=== PATIENT | female | born 1980 | race Caucasian/White ===

== ENCOUNTER → 2018-09-12 15:23 | Outpatient (CLI) | payer SELFPAY ==
[2013-12-03 12:59] VITALS: BMI 35.9
[2018-09-12 17:52] LABS: Absolute Lymphocyte Count 2.44 X10^3/ul (0.83-4.51); Absolute Neutrophil Count 4.5 X10^3/uL (2.0-7.7); Basophil# 0.06 X10^3/uL; Basophil% 0.7 % (0-1); Eosinophil# 0.22 X10^3/uL; Eosinophils% 2.7 % (0-5); Hematocrit 41.3 % (37-47); Hemoglobin 13.5 g/dl (12.0-15.0); Lymphocyte # 2.44 X10^3/ul (4.0); Lymphocyte % 30.2 % (19-41); Mean Corp Hgb Conc 32.7 g/gl (32-36); Mean Corpuscular Hgb 28.2 pg (27.0-32.0); Mean Corpuscular Volume 86.4 fL (81-99); Mean Platelet Vol. 9.9 fl (6.2-12.0); Monocyte# 0.81 X10^3/uL; Neutrophil # 4.52 X10^3/uL (2.7-7.7); Neutrophil % 56.2 % (47-70); Platelet Count 372 K/mm3 (150-450); RBC Distribution Width CV 12.9 % (11.6-14.6); RBC Distribution Width SD 40.1 fl (35.1-43.9); Red Blood Count 4.78 M/mm3 (4.2-5.4); White Blood Count 8.1 K/mm3 (4.4-11.0)
[2018-09-12 18:06] LABS: POSITIVE COUNT NO; POSITIVE DIFFERENTIAL NO; POSITIVE MORPHOLOGY NO
[2018-09-12 18:54] LABS: ALB/GLOB Ratio 0.9 RATIO (0.9-2.4); AST(SGOT) 17 U/L (15-37); Alanine Aminotransfer ALT/SGPT 22 U/L (13-56); Albumin, Serum 3.6 g/dL (3.2-5.0); Alkaline Phosphatase 76 U/L (45-117); Anion Gap 10 (5-15); BUN 14 mg/dL (7-18); BUN/Creat Ratio 24.6 RATIO (10-20); Calcium,Total 8.6 mg/dL (8.5-10.1); Chloride 104 mmol/L (98-107); Creatinine, Serum 0.57 mg/dL (0.55-1.02); EST Glomerular Filtration Rate 125 mL/min (>60); Est Glom Filt Rate - Afr Amer 151 mL/min (>60); Globulin 3.9 g/dL (2.2-4.2); Glucose 73 mg/dL (74-106); Protein, Total 7.5 g/dL (6.4-8.2); Sodium Level 140 mmol/L (136-145); Thyroid Stim Hormone (TSH) 0.46 uIU/mL (0.358-3.74)
[2018-09-12 19:08] LABS: Vitamin D,25 Hydroxy 12.4 ng/mL (29.95-100.01)
--- OUTSIDE RECORDS SUMMARY | 2018-10-29 21:55 | XMS RPT_ITS ---
:1980 Author Organization OHIP Care Team Providers Name Role Phone Ania Wright Attending Unavailable Ania Wright Referring Unavailable Ania Wright Primary Care Unavailable PROBLEMS PROBLEMS No Problem Records FoundPROCEDURES PROCEDURES No Procedure Records FoundRESULTS RESULTS CBC W/DIFF, AUTOMATED Collected: 09/12/2018 Status: F Source: [place] 3:39 PM [facility] [place] CODE TESTS RESULT OUT OF RANGE REFERENCE UNITS LAB L100.1000 4.4-11.0 K/mm3 Normal WBC 8.1 LAB L100.1200 4.2-5.4 M/mm3 Normal RBC 4.78 LAB L100.1300 12.0-15.0 g/dl Normal HGB 13.5 LAB L100.1400 37-47 % Normal HCT 41.3 LAB L100.1500 81-99 fL Normal MCV 86.4 LAB L100.1600 27.0-32.0 pg Normal MCH 28.2 LAB L100.1700 32-36 g/gl Normal MCHC 32.7 LAB L100.1810 11.6-14.6 % Normal RDW CV 12.9 LAB L100.1820 35.1-43.9 fl Normal RDW SD 40.1 LAB L100.1900 150-450 K/mm3 Normal PLT 372 LAB L100.2000 6.2-12.0 fl Normal MPV 9.9 LAB L100.2100 47-70 % Normal NEUT% 56.2 LAB L100.2200 19-41 % Normal LY% 30.2 LAB L100.2300 0-10 % Normal MONO% 10.0 LAB L100.2400 0-5 % Normal EO% 2.7 LAB L100.2500 0-1 % Normal BASO% 0.7 LAB L100.2550 0.0-0.9 % Normal IM GRAN % 0.200 Result Comment: IG% - Immature Granulocytes (promyelocytes, myelocytes and metamyelocytes) > 1% indicates that a LEFT SHIFT is Present. LAB L100.2620 2.0-7.7 X10 3/uL Normal Absolute Neut 4.5 LAB L100.2720 0.83-4.51 X10 3/ul Normal Absolute Lymph 2.44 Performed By: #### L100.0100 #### [facility] [address] [place], [place], [address] COMPREHENSIVE METABOLIC Collected: 09/12/2018 Status: F Source: [place] [facility] 3:39 PM [facility] [place] CODE TESTS RESULT OUT OF RANGE REFERENCE UNITS LAB L501.0100 74-106 mg/dL Low GLU 73 Result Comment: Please note revised GLUCOSE reference range effective 2017. LAB L501.1000 7-18 mg/dL Normal BUN 14 LAB L501.1100 0.55-1.02 mg/dL Normal CREAT,SERUM 0.57 Result Comment: The validity of the calculated GFR AND GFRAA in patients over 70 years has not been determined. Clinical correlation is essential. LAB L501.1110 >60 mL/min Normal EST GFR 125 Result Comment: Non- GFR Calc LAB L501.1115 >60 mL/min Normal EST GFR - AA 151 Result Comment: GFR Calc LAB L501.1300 10-20 RATIO High BUN/CRE 24.6 LAB L501.1500 6.4-8.2 g/dL T Normal PROT 7.5 LAB L501.1800 3.2-5.0 g/dL Normal ALB 3.6 LAB L501.1950 2.2-4.2 g/dL Normal GLOB 3.9 LAB L501.2000 0.9-2.4 RATIO Normal A/G 0.9 LAB L501.2200 8.5-10.1 mg/dL CA Normal 8.6 LAB L501.4100 15-37 U/L Normal AST 17 LAB L501.4305 45-117 U/L Normal ALK P 76 LAB L501.4405 13-56 U/L Normal ALT 22 LAB L501.4600 0.20-1.00 mg/dL T Normal BILI 0.20 LAB L501.5300 136-145 mmol/L NA Normal 140 LAB L501.5600 3.5-5.1 mmol/L K Normal 4.0 LAB L501.5900 98-107 mmol/L CL Normal 104 LAB L501.6100 21.0-32.0 mmol/L Normal CO2 26.0 LAB L501.6200 5-15 Normal GAP 10 Performed By: #### L500.4050, L501.9520 #### [facility] [address] [place], [place], [address] THYROID STIM HORMONE Collected: 09/12/2018 Status: F Source: [place] ([facility]) 3:39 PM [facility] [place] CODE TESTS RESULT OUT OF RANGE REFERENCE UNITS LAB L501.9520 0.358-3.74 uIU/mL Normal TSH 0.46 Performed By: #### L500.4050, L501.9520 #### [facility] [address] [place], [place], [address] VITAMIN D,25 HYDROXY Collected: 09/12/2018 Status: F Source: [place] 3:39 PM [facility] [place] CODE TESTS RESULT OUT OF REFERENCE UNITS RANGE LAB L506.1000 29.95-100.01 ng/mL Low Vitamin D 12.4 25-OH Result Comment: Vitamin D 25(OH) Status Range Deficiency <20 ng/mL (50nmol/L) Insuffciency 20 - 30 ng/mL (50 - 75 nmol/L) Sufficiency 30 - 100 ng/mL (75 - 250 nmol/L) Toxicity >100 ng/mL (>250 nmol/L) Performed By: #### L506.1000 #### [facility] [address] [place], [place], [address] PROGRESS Observed: 05/10/2018 Status: COMPLETED Source: [place] 7:02 PM [facility] [place] REPOSITORY HNO ID: [id number] Author: Mile Muhammad Service: (none) Author Type: Nurse Practitioner Type: Progress Notes Filed: 05/10/2018 7:27 PM Note Text: Subjective HPI Patient presents with: Sore Throat: X 3 days, T 102.8 max, bilat ear pain AND cough Positive strep 05/08, has taken 4 doses of Amoxil ROS All other reviewed and negative other than HPI. 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 FLUoxetine (PROZAC) 20 mg capsule Take 1 capsule by mouth once daily. ibuprofen (MOTRIN) 800 mg tablet Take 1 tablet by mouth every 8 hours as needed for Pain. FOR PAIN. predniSONE (DELTASONE) 10 mg tablet Take 4 tabs daily x 3 days, then 3 tabs x 3 days, 2 tabs x 3 days, then 1 tab x3 days with food. FAMILY HISTORY Problem Relation Age of Onset - Adopted: Yes - Cancer Mother LUNG - Stroke Maternal Grandmother - Heart Maternal Grandmother - Heart Maternal Grandfather - Hypertension Maternal Grandfather - Cancer Maternal Grandfather Lung Social History Substance Use Topics - Smoking status: Never Smoker - Smokeless tobacco: Never Used - Alcohol use No Objective Physical Exam Constitutional: She is well-developed, well-nourished, and in no distress. HENT: Head: Normocephalic. Right Ear: Tympanic membrane, external ear and ear canal normal. Left Ear: Tympanic membrane, external ear and ear canal normal. Nose: Nose normal. Right sinus exhibits no maxillary sinus tenderness and no frontal sinus tenderness. Left sinus exhibits no maxillary sinus tenderness and no frontal sinus tenderness. Mouth/Throat: Posterior oropharyngeal edema and posterior oropharyngeal erythema present. Eyes: Conjunctivae are normal. Neck: Normal range of motion. Cardiovascular: Normal rate, regular rhythm and normal heart sounds. Pulmonary/Chest: Effort normal and breath sounds normal. No respiratory distress. She has no wheezes. Abdominal: Soft. Lymphadenopathy: Head (right side): Tonsillar adenopathy present. Head (left side): Tonsillar adenopathy present. She has cervical adenopathy. Skin: Skin is warm and dry. No rash noted. Nursing note and vitals reviewed. ASSESSMENT/PLAN: 1. Strep pharyngitis - ICD9: 034.0, ICD10: J02.0 - D/c Amoxil - Start Omnicef - Discussed supportive care treatment with fluids, rest and analgesia. - The patient may also use warm salt water gargles, throat lozenges and/or OTC throat spray as needed. - Contagious dz precautions discussed- including considered contagious until on antibiotics for 24 hours - The patient should follow up in 3-5 days if symptoms persist or worsen - Call back if drooling, increased temperature, symptoms of dehydration and/or still sick in one week Prescription instructions reviewed with patient as applicable. Patient advised if symptoms do not improve or if symptoms worsen sooner, to contact their primary care physician. Potential red flag symptoms discussed with the patient. Reviewed appropriate action plan to take if red flag symptoms occur. Patient agreeable to treatment plan. Mile Muhammad APRN.CNP CNOV Observed: 05/10/2018 Status: COMPLETED Source: [place] 5:30 PM [facility] REPOSITORY Office Visit ([facility]) ULISES SOLOMON ([id number]) 1980 F Date Time Provider Department 05/10/18 5:30 PM MILE MUHAMMAD (CLINICAL PHYSICIAN ASSISTANT) [facility] During your visit today, we recorded the following information about you: Temperature Pulse Respiration Blood pressure 99.4 degrees 80/minute 18/minute 122/84 Weight 73 kg Mile Muhammad APRN.CNP 05/10/2018 7:27 PM Signed Subjective HPI Patient presents with: Sore Throat: X 3 days, T 102.8 max, bilat ear pain AND cough Positive strep 05/08, has taken 4 doses of Amoxil ROS All other reviewed and negative other than HPI. 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 FLUoxetine (PROZAC) 20 mg capsule Take 1 capsule by mouth once daily. ibuprofen (MOTRIN) 800 mg tablet Take 1 tablet by mouth every 8 hours as needed for Pain. FOR PAIN. predniSONE (DELTASONE) 10 mg tablet Take 4 tabs daily x 3 days, then 3 tabs x 3 days, 2 tabs x 3 days, then 1 tab x3 days with food. FAMILY HISTORY Problem Relation Age of Onset - Adopted: Yes - Cancer Mother LUNG - Stroke Maternal Grandmother - Heart Maternal Grandmother - Heart Maternal Grandfather - Hypertension Maternal Grandfather - Cancer Maternal Grandfather Lung Social History Substance Use Topics - Smoking status: Never Smoker - Smokeless tobacco: Never Used - Alcohol use No Objective Physical Exam Constitutional: She is well-developed, well-nourished, and in no distress. HENT: Head: Normocephalic. Right Ear: Tympanic membrane, external ear and ear canal normal. Left Ear: Tympanic membrane, external ear and ear canal normal. Nose: Nose normal. Right sinus exhibits no maxillary sinus tenderness and no frontal sinus tenderness. Left sinus exhibits no maxillary sinus tenderness and no frontal sinus tenderness. Mouth/Throat: Posterior oropharyngeal edema and posterior oropharyngeal erythema present. Eyes: Conjunctivae are normal. Neck: Normal range of motion. Cardiovascular: Normal rate, regular rhythm and normal heart sounds. Pulmonary/Chest: Effort normal and breath sounds normal. No respiratory distress. She has no wheezes. Abdominal: Soft. Lymphadenopathy: Head (right side): Tonsillar adenopathy present. Head (left side): Tonsillar adenopathy present. She has cervical adenopathy. Skin: Skin is warm and dry. No rash noted. Nursing note and vitals reviewed. ASSESSMENT/PLAN: 1. Strep pharyngitis - ICD9: 034.0, ICD10: J02.0 - D/c Amoxil - Start Omnicef - Discussed supportive care treatment with fluids, rest and analgesia. - The patient may also use warm salt water gargles, throat lozenges and/or OTC throat spray as needed. - Contagious dz precautions discussed- including considered contagious until on antibiotics for 24 hours - The patient should follow up in 3-5 days if symptoms persist or worsen - Call back if drooling, increased temperature, symptoms of dehydration and/or still sick in one week Prescription instructions reviewed with patient as applicable. Patient advised if symptoms do not improve or if symptoms worsen sooner, to contact their primary care physician. Potential red flag symptoms discussed with the patient. Reviewed appropriate action plan to take if red flag symptoms occur. Patient agreeable to treatment plan. 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-2014 to GRASS, MOLD, DUST MITE HUBERT'S WORT 06/21/2012 2 - Rash Date Reviewed: 05/10/2018 Reviewed by: Mariposa Samuel LPN - Fully Assessed Reason for Visit: Sore Throat [200] Cmt: X 3 days, T 102.8 max, bilat ear pain AND cough Primary Visit Diagnosis:Strep pharyngitis [J02.0] Order(s):cefdinir (OMNICEF) 300 mg capsuleTake 1 capsule by mouth twice daily for 10 days.Disp: 20 capsuleRfl: 0 Prescriptions as of 05/10/2018 Sig: CEFDINIR 300 MG CAPSULE Take 1 capsule by mouth twice* FLUOXETINE 20 MG CAPSULE Take 1 capsule by mouth once * IBUPROFEN 800 MG TABLET Take 1 tablet by mouth every * PREDNISONE 10 MG TABLET Take 4 tabs daily x 3 days, t* Problem List As Of Date 05/10/2018 Noted Resolved CMV (cytomegalovirus infection) [B25.9] INVALID FOR* Irregular menses [N92.6] INVALID FOR*07/25/2015 Menorrhagia with regular cycle [N92.0] INVALID FOR* Dysmenorrhea [N94.6] INVALID FOR* Prescriptions ordered this encounter Disp Refills Start End CEFDINIR 300 MG CAPSULE 20 c* 0 05/10/2018 05/20/2018 Route: ORAL Sig: Take 1 capsule by mouth twice daily for 10 days. Medications Discontinued During This Encounter amoxicillin (AMOXIL) 875 mg tablet 20 t* 0 05/08/2018 05/10/2018 Route: ORAL Sig: Take 1 tablet by mouth twice daily for 10 days. Disc: Reason for discontinue is not on file. Disposition: Return if symptoms worsen or fail to improve. Follow-up and Disposition History Recorded Letter Text Mile Muhammad APRN.CNP Urgent Care [address] [facility] [address] Dept: [phone] 05/10/2018 Ulises Solomon [address] [facility] [address] To Whom it May Concern: This is to certify that Ulises Solomon was seen at our office for medical care. Ulises may return to work on 05/11/2018. If you have any questions please feel free to call. Sincerely: Mile Muhammad APRN.CNP Encounter Status:Closed by MILE MUHAMMAD on 05/10/18 PROGRESS Observed: 05/08/2018 Status: COMPLETED Source: [place] 2:51 PM [facility] [place] REPOSITORY HNO ID: [id number] Author: Mile Duarte (Slice Plug Cutter Operator) Jb Service: (none) Author Type: Nurse Practitioner Type: Progress Notes Filed: 05/08/2018 2:56 PM Note Text: Subjective HPI Patient presents with: Sore Throat: x 1 day Fever: x 1 day fever and chills Ear Pain: x 1 day right ear pain Aleve otc with minimal relief. ROS All other reviewed and negative other than HPI. PAST MEDICAL HISTORY Diagnosis Date - CMV (cytomegalovirus infection) ([facility]) 05/13/2011 PAST SURGICAL HISTORY Procedure Laterality Date - INCISION EARDRUM,ASPIR,GEN ANESTH Myringotomy/tubes - REMOVAL ADENOIDS,PRIMARY,<12 Y/O Adenoidectomy ALLERGIES [place]; Nut - Unspecified; Seasonal Allergies; [place]'s Wort MEDICATIONS amoxicillin (AMOXIL) 875 mg tablet Take 1 tablet by mouth twice daily for 10 days. FLUoxetine (PROZAC) 20 mg capsule Take 1 capsule by mouth once daily. ibuprofen (MOTRIN) 800 mg tablet Take 1 tablet by mouth every 8 hours as needed for Pain. FOR PAIN. predniSONE (DELTASONE) 10 mg tablet Take 4 tabs daily x 3 days, then 3 tabs x 3 days, 2 tabs x 3 days, then 1 tab x3 days with food. FAMILY HISTORY Problem Relation Age of Onset - Adopted: Yes - Cancer Mother LUNG - Stroke Maternal Grandmother - Heart Maternal Grandmother - Heart Maternal Grandfather - Hypertension Maternal Grandfather - Cancer Maternal Grandfather Lung Social History Substance Use Topics - Smoking status: Never Smoker - Smokeless tobacco: Never Used - Alcohol use No Objective Physical Exam Constitutional: She is well-developed, well-nourished, and in no distress. HENT: Head: Normocephalic. Right Ear: Tympanic membrane, external ear and ear canal normal. Left Ear: Tympanic membrane, external ear and ear canal normal. Nose: Nose normal. Right sinus exhibits no maxillary sinus tenderness and no frontal sinus tenderness. Left sinus exhibits no maxillary sinus tenderness and no frontal sinus tenderness. Mouth/Throat: Posterior oropharyngeal edema and posterior oropharyngeal erythema present. Eyes: Conjunctivae are normal. Neck: Normal range of motion. Cardiovascular: Normal rate, regular rhythm and normal heart sounds. Pulmonary/Chest: Effort normal and breath sounds normal. No respiratory distress. She has no wheezes. Abdominal: Soft. Lymphadenopathy: Head (right side): Tonsillar adenopathy present. Head (left side): Tonsillar adenopathy present. Skin: Skin is warm and dry. No rash noted. Nursing note and vitals reviewed. ASSESSMENT/PLAN: 1. Strep pharyngitis - ICD9: 034.0, ICD10: J02.0 - suspect strep - Rapid Strep positive in the office today - antibiotic as written and Amoxicillin for 10 days. - Discussed supportive care treatment with fluids, rest and analgesia. - Contagious dz precautions discussed- including considered contagious until on antibiotics for 24 hours - The patient should follow up in 3-5 days if symptoms persist or worsen - Call back if drooling, increased temperature, symptoms of dehydration and/or still sick in one week - RAPID STREP TEST B/O Prescription instructions reviewed with patient as applicable. Patient advised if symptoms do not improve or if symptoms worsen sooner, to contact their primary care physician. Potential red flag symptoms discussed with the patient. Reviewed appropriate action plan to take if red flag symptoms occur. Patient agreeable to treatment plan. Mile Muhammad APRN.PHYSICIAN OFFICE REP CNOV Observed: 05/08/2018 Status: COMPLETED Source: [place] 2:15 PM [facility] REPOSITORY Office Visit ([facility]) ULISES SOLOMON ([id number]) 1980 F Date Time Provider Department 05/08/18 2:15 PM MILE MUHAMMAD (LIZETH) [facility] During your visit today, we recorded the following information about you: Temperature Pulse Respiration Blood pressure 99.8 degrees 91/minute 16/minute 112/64 Weight 77.1 kg Mile Muhammad APRN.CNP 05/08/2018 2:44 PM Signed What is strep throat? Strep throat is an infection caused by a specific type of bacteria, Streptococcus. When your child has a strep throat, the tonsils are usually very inflamed, and the inflammation may affect the surrounding part of the throat as well. Symptoms Strep throat is caused by a bacterium called Streptococcus pyogenes. To some extent, the symptoms of strep throat depend on the child?s age. - Infants with strep infections may have only a low fever and a thickened or bloody nasal discharge. - Toddlers (ages one to three) also may have a thickened or bloody nasal discharge with a fever. Such children are usually quite cranky, have no appetite, and often have swollen glands in the neck. Sometimes toddlers will complain of tummy pain instead of a sore throat. - Children over three years of age with strep are often more ill; they may have an extremely painful throat, fever over 102 degrees Fahrenheit (38.9 degrees Celsius), swollen glands in the neck, and pus on the tonsils. It?s important to be able to distinguish a strep throat from a viral sore throat, because strep infections are treated with antibiotics. When to call the languages and literature instructor If your child has a sore throat that persists (not one that goes away after her first drink in the morning), whether or not it is accompanied by fever, headache, stomachache, or extreme fatigue, you should call your languages and literature instructor. That call should be made even more urgently if your child seems extremely ill, or if she has difficulty breathing or extreme trouble swallowing (causing her to drool). This may indicate a more serious infection. Treatment If the strep test shows that your child does have strep throat, your languages and literature instructor will prescribe an antibiotic to be taken by mouth or by injection. If your child is given the oral medication, it?s very important that she take it for the full course, as prescribed, even if the symptoms get better or go away. If a child?s strep throat is not treated with antibiotics, or if she doesn?t complete the treatment, the infection may worsen or spread to other parts of her body, leading to conditions such as abscesses of the tonsils or kidney problems. Untreated strep infections also can lead to rheumatic fever, a disease that affects the heart. However, rheumatic fever is rare in the [place] and in children under five years old. Prevention Most types of throat infections are contagious, being passed primarily through the air on droplets of moisture or on the hands of infected children or adults. For that reason, it makes sense to keep your child away from people who have symptoms of this condition. However, most people are contagious before their first symptoms appear, so often there?s really no practical way to prevent your child from brant the disease. In the past when a child had several sore throats, her tonsils might have been removed in an attempt to prevent further infections. But this operation, called a tonsillectomy, is recommended today only for the most severely affected children. Even in difficult cases, where there is repeated strep throat, antibiotic treatment is usually the best solution. Mile Muhammad APRN.PHYSICIAN OFFICE REP 05/08/2018 2:56 PM Signed Subjective HPI Patient presents with: Sore Throat: x 1 day Fever: x 1 day fever and chills Ear Pain: x 1 day right ear pain Aleve otc with minimal relief. ROS All other reviewed and negative other than HPI. PAST MEDICAL HISTORY Diagnosis Date - CMV (cytomegalovirus infection) ([facility]) 05/13/2011 PAST SURGICAL HISTORY Procedure Laterality Date - INCISION EARDRUM,ASPIR,GEN ANESTH Myringotomy/tubes - REMOVAL ADENOIDS,PRIMARY,<12 Y/O Adenoidectomy ALLERGIES [place]; Nut - Unspecified; Seasonal Allergies; Hubert's Wort MEDICATIONS amoxicillin (AMOXIL) 875 mg tablet Take 1 tablet by mouth twice daily for 10 days. FLUoxetine (PROZAC) 20 mg capsule Take 1 capsule by mouth once daily. ibuprofen (MOTRIN) 800 mg tablet Take 1 tablet by mouth every 8 hours as needed for Pain. FOR PAIN. predniSONE (DELTASONE) 10 mg tablet Take 4 tabs daily x 3 days, then 3 tabs x 3 days, 2 tabs x 3 days, then 1 tab x3 days with food. FAMILY HISTORY Problem Relation Age of Onset - Adopted: Yes - Cancer Mother LUNG - Stroke Maternal Grandmother - Heart Maternal Grandmother - Heart Maternal Grandfather - Hypertension Maternal Grandfather - Cancer Maternal Grandfather Lung Social History Substance Use Topics - Smoking status: Never Smoker - Smokeless tobacco: Never Used - Alcohol use No Objective Physical Exam Constitutional: She is well-developed, well-nourished, and in no distress. HENT: Head: Normocephalic. Right Ear: Tympanic membrane, external ear and ear canal normal. Left Ear: Tympanic membrane, external ear and ear canal normal. Nose: Nose normal. Right sinus exhibits no maxillary sinus tenderness and no frontal sinus tenderness. Left sinus exhibits no maxillary sinus tenderness and no frontal sinus tenderness. Mouth/Throat: Posterior oropharyngeal edema and posterior oropharyngeal erythema present. Eyes: Conjunctivae are normal. Neck: Normal range of motion. Cardiovascular: Normal rate, regular rhythm and normal heart sounds. Pulmonary/Chest: Effort normal and breath sounds normal. No respiratory distress. She has no wheezes. Abdominal: Soft. Lymphadenopathy: Head (right side): Tonsillar adenopathy present. Head (left side): Tonsillar adenopathy present. Skin: Skin is warm and dry. No rash noted. Nursing note and vitals reviewed. ASSESSMENT/PLAN: 1. Strep pharyngitis - ICD9: 034.0, ICD10: J02.0 - suspect strep - Rapid Strep positive in the office today - antibiotic as written and Amoxicillin for 10 days. - Discussed supportive care treatment with fluids, rest and analgesia. - Contagious dz precautions discussed- including considered contagious until on antibiotics for 24 hours - The patient should follow up in 3-5 days if symptoms persist or worsen - Call back if drooling, increased temperature, symptoms of dehydration and/or still sick in one week - RAPID STREP TEST B/O Prescription instructions reviewed with patient as applicable. Patient advised if symptoms do not improve or if symptoms worsen sooner, to contact their primary care physician. Potential red flag symptoms discussed with the patient. Reviewed appropriate action plan to take if red flag symptoms occur. Patient agreeable to treatment plan. 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, MOLD, DUST MITE HUBERT'S WORT 06/21/2012 2 - Rash Date Reviewed: 05/08/2018 Reviewed by: Mile Duarte (Slice Plug Cutter Operator) Jb - Fully Assessed Reason for Visit: Sore Throat [200] Cmt: x 1 day Fever [47] Cmt: x 1 day fever and chills Ear Pain [817] Cmt: x 1 day right ear pain Primary Visit Diagnosis:Strep pharyngitis [J02.0] Order(s):RAPID STREP TEST B/O [[id number]] Order #: [id number] amoxicillin (AMOXIL) 875 mg tabletTake 1 tablet by mouth twice daily for 10 days.Disp: 20 tabletRfl: 0 Prescriptions as of 05/08/2018 Sig: AMOXICILLIN 875 MG TABLET Take 1 tablet by mouth twice * FLUOXETINE 20 MG CAPSULE Take 1 capsule by mouth once * IBUPROFEN 800 MG TABLET Take 1 tablet by mouth every * PREDNISONE 10 MG TABLET Take 4 tabs daily x 3 days, t* Problem List As Of Date 05/08/2018 Noted Resolved CMV (cytomegalovirus infection) [B25.9] INVALID FOR* Irregular menses [N92.6] INVALID FOR*07/25/2015 Menorrhagia with regular cycle [N92.0] INVALID FOR* Dysmenorrhea [N94.6] INVALID FOR* Other instructions from your clinician: What is strep throat? Strep throat is an infection caused by a specific type of bacteria, Streptococcus. When your child has a strep throat, the tonsils are usually very inflamed, and the inflammation may affect the surrounding part of the throat as well. Symptoms Strep throat is caused by a bacterium called Streptococcus pyogenes. To some extent, the symptoms of strep throat depend on the child?s age. - Infants with strep infections may have only a low fever and a thickened or bloody nasal discharge. - Toddlers (ages one to three) also may have a thickened or bloody nasal discharge with a fever. Such children are usually quite cranky, have no appetite, and often have swollen glands in the neck. Sometimes toddlers will complain of tummy pain instead of a sore throat. - Children over three years of age with strep are often more ill; they may have an extremely painful throat, fever over 102 degrees Fahrenheit (38.9 degrees Celsius), swollen glands in the neck, and pus on the tonsils. It?s important to be able to distinguish a strep throat from a viral sore throat, because strep infections are treated with antibiotics. When to call the languages and literature instructor If your child has a sore throat that persists (not one that goes away after her first drink in the morning), whether or not it is accompanied by fever, headache, stomachache, or extreme fatigue, you should call your languages and literature instructor. That call should be made even more urgently if your child seems extremely ill, or if she has difficulty breathing or extreme trouble swallowing (causing her to drool). This may indicate a more serious infection. Treatment If the strep test shows that your child does have strep throat, your languages and literature instructor will prescribe an antibiotic to be taken by mouth or by injection. If your child is given the oral medication, it?s very important that she take it for the full course, as prescribed, even if the symptoms get better or go away. If a child?s strep throat is not treated with antibiotics, or if she doesn?t complete the treatment, the infection may worsen or spread to other parts of her body, leading to conditions such as abscesses of the tonsils or kidney problems. Untreated strep infections also can lead to rheumatic fever, a disease that affects the heart. However, rheumatic fever is rare in the [place] and in children under five years old. Prevention Most types of throat infections are contagious, being passed primarily through the air on droplets of moisture or on the hands of infected children or adults. For that reason, it makes sense to keep your child away from people who have symptoms of this condition. However, most people are contagious before their first symptoms appear, so often there?s really no practical way to prevent your child from brant the disease. In the past when a child had several sore throats, her tonsils might have been removed in an attempt to prevent further infections. But this operation, called a tonsillectomy, is recommended today only for the most severely affected children. Even in difficult cases, where there is repeated strep throat, antibiotic treatment is usually the best solution. Prescriptions ordered this encounter Disp Refills Start End AMOXICILLIN 875 MG TABLET 20 t* 0 05/08/2018 05/18/2018 Route: ORAL Sig: Take 1 tablet by mouth twice daily for 10 days. Disposition: Return if symptoms worsen or fail to improve. Follow-up and Disposition History Recorded Letter Text Mlie Muhammad APRN.PHYSICIAN OFFICE REP Urgent Care [address] [facility] [address] Dept: [phone] 05/08/2018 Ulises Solomon [address] [facility] [address] To Whom it May Concern: This is to certify that Ulises Longpattiejessica was seen at our office for medical care. Ulises may return to work on 05/09/2018. If you have any questions please feel free to call. Sincerely: Mile Muhammad APRN.[facility] Encounter Status:Closed by MILE MUHAMMAD on 05/08/18 ALLERGIES ALLERGIES DATE TYPE / CODE NAME / CODE REACTION SEVERITY SOURCE 04/04/2014 Environ/420 SEASONAL ALLERGIES OTHER: SEE [facility] [id number]([facility] ED CT) Repository 12/03/2013 Drug No Known Unknown Avery Allergy/416 Allergies/[id number] [facility] 865173([place] [address](RXNORM) [facility] ED CT) Repository 06/21/2012 DRUG EDEN RASH [address] [id number]([facility] Repository ED CT) 06/21/2012 DRUG HUBERT'S WORT RASH [address] 511172([facility] Repository ED CT) 07/07/2011 DRUG NUT - UNSPECIFIED OTHER: SEE [address] 975211([facility] Repository ED CT) ENCOUNTERS ENCOUNTERS ADMIT/DISCHARGE ACCOUNT ADMITTING ENCOUNTER LOCATION SOURCE NUMBER CLASS 09/12/2018 [id number] Ambulatory [facility] ing:MTLAB Repository 05/10/2018/05/11/20 [id number] Ambulatory [address] Repository 05/08/2018/05/09/20 [id number] Ambulatory [address] Repository PAYERS PAYERS ENCOUNTER GUARANTOR PAYER SUBSCRIBER SOURCE 09/12/2018 JOCY Primary NOT GIVENSILVIA [id number] Insurance:SELF PAY [place], [place] Number: Effective Repository [id number]: [phone] Date:2018-09-12 [phone] ()
== END ==
PROVIDERS: Family Provider Family Medicine; PCP Family Medicine; Referring Provider Family Medicine; Visit Provider Family Medicine
DX: Z00.00 Encounter for general adult medical examination without abnormal findings (principal); R42 Dizziness and giddiness
CPT/HCPCS: 36415; 80053; 82306; 84443; 85025

== ENCOUNTER → 2018-11-18 13:23 | Outpatient (CLI) | payer SELFPAY ==
[2013-12-03 12:59] VITALS: BMI 35.9
[2018-11-18 14:36] LABS: Vitamin D,25 Hydroxy 13.4 ng/mL (29.95-100.01)
== END ==
PROVIDERS: Family Provider Family Medicine; PCP Family Medicine; Referring Provider Family Medicine; Visit Provider Family Medicine
DX: E55.9 Vitamin D deficiency, unspecified (principal)
CPT/HCPCS: 36415; 82306

== ENCOUNTER → 2018-11-24 13:16 | Outpatient (CLI) | payer OTHER, SELFPAY ==
[2018-11-24 13:12] VITALS: BMI 34.9
--- NOTE | 2018-11-24 13:19 | RAD_ITS ---
STUDY: X-RAY - LEFT KNEE REASON FOR EXAM: Female, 38 years old. Pain following injury. TECHNIQUE: 4 view(s) of the knee. COMPARISON: None. FINDINGS: Normal visualized distal femur. Normal visualized proximal tibia and fibula. Normal proximal tibiofibular articulation. Normal medial femorotibial compartment. Normal lateral femorotibial compartment. Normal patellofemoral articulation. The soft tissue structures are unremarkable. RAD/Knee 4 or More Views IMPRESSION: Normal x-ray examination of the knee. Electronically Signed: Candido Bustos MD at 14:13 EST , Service support ,
== END ==
PROVIDERS: Family Provider Family Medicine; PCP Family Medicine; Referring Provider Physician Assistant; Visit Provider Physician Assistant
DX: S80.02XA Contusion of left knee, initial encounter (principal)
CPT/HCPCS: 73564

== ENCOUNTER → 2019-01-13 14:13 | Outpatient (CLI) | payer SELFPAY ==
[2019-01-10 06:39] VITALS: BMI 34.9
[2019-01-13 15:13] LABS: Vitamin D,25 Hydroxy 22.9 ng/mL (29.95-100.01)
== END ==
PROVIDERS: Family Provider Family Medicine; PCP Family Medicine; Referring Provider Family Medicine; Visit Provider Family Medicine
DX: E55.9 Vitamin D deficiency, unspecified (principal)
CPT/HCPCS: 36415; 82306

== ENCOUNTER → 2020-11-06 12:12 | Outpatient (CLI) | payer OTHER, SELFPAY ==
[2019-01-10 06:39] VITALS: BMI 34.9
[2020-11-06 15:48] LABS: Vitamin D,25 Hydroxy 22.4 ng/mL
== END ==
PROVIDERS: PCP Family Medicine; Referring Provider Podiatrist; Visit Provider Podiatrist
DX: M84.374A Stress fracture, right foot, initial encounter for fracture (principal)
CPT/HCPCS: 36415; 82306

== ENCOUNTER → 2021-01-24 11:06 | Outpatient (CLI) | payer OTHER, SELFPAY ==
[2019-01-10 06:39] VITALS: BMI 34.9
[2021-01-24 13:24] LABS: Vitamin D,25 Hydroxy 27.6 ng/mL
== END ==
PROVIDERS: PCP Family Medicine; Referring Provider Podiatrist; Visit Provider Podiatrist
DX: E55.9 Vitamin D deficiency, unspecified (principal)
CPT/HCPCS: 36415; 82306

== ENCOUNTER → 2022-06-25 | Outpatient (CLI) | payer OTHER, SELFPAY ==
[2022-06-25 15:17] LABS: Anion Gap 4 (5-15); BUN 5 mg/dL (7-18); BUN/Creat Ratio 11.2 RATIO (10-20); Calcium,Total 8.5 mg/dL (8.5-10.1); Chloride 106 mmol/L (98-107); Creatinine, Serum 0.45 mg/dL (0.55-1.02); EST Glomerular Filtration Rate 162 mL/min (>60); Est Glom Filt Rate - Afr Amer 196 mL/min (>60); Glucose 74 mg/dL (74-106); Potassium 3.9 mmol/L (3.5-5.1); Sodium Level 139 mmol/L (136-145)
[2022-06-25 15:42] LABS: Vitamin D,25 Hydroxy 26.5 ng/mL
== END | disposition home or self-care (01) ==
PROVIDERS: Referring Provider Podiatrist; Visit Provider Podiatrist
DX: E55.9 Vitamin D deficiency, unspecified (principal)
CPT/HCPCS: 36415; 80048; 82306

== ENCOUNTER 2022-07-11 14:19 | Emergency (ER) | payer OTHER, SELFPAY ==
[2022-07-11 14:22] VITALS: BP 124/76; PULSE 69; RESP 18; TEMP 36.7; O2SAT 99; BMI 29.2
--- NOTE | 2022-07-11 14:45 | RAD_ITS ---
STUDY: X-RAY - RIGHT FOOT CLINICAL: Female, 42 years old. Injury/Pain TECHNIQUE: 3 view(s) of the foot. COMPARISON: None. FINDINGS: Normal talus, calcaneus, and tarsal bones. Normal visualized subtalar, talonavicular, calcaneocuboid, tarsal and tarsometatarsal articulations. Normal metatarsi. Small plantar calcaneal spur noted. There is mild degenerative arthrosis of the metatarsophalangeal joint of the hallux . Normal tibial and fibular sesamoid bones. Normal interphalangeal joint of the great toe. Normal phalanges of the great toe. Normal second through fifth metatarsophalangeal joints. Normal interphalangeal joints and phalanges of the lesser toes. A corticated ossicle is present at the undersurface of the medial malleolus which is either developmental or due to old trauma. The soft tissue structures are unremarkable. There is no demonstrated fracture. RAD/Foot min 3 Views IMPRESSION: 1. No acute fracture or acute process of the right foot Electronically Signed: Carlos Eduardo Sanderson MD at 15:29 EDT ,
--- NOTE | 2022-07-11 14:45 | ED.VIS.LOWEX ---
HPI History of Present Illness Chief Complaint: Lower Extremity Injury Detail of Chief Complaint: Patient states she felt a pop and had pain mid right foot Informant: patient Occured/Mechanism Comment: Patient states she was standing when this occurred. Onset/Context/Timing Context: Sudden Onset Timing: Continuous Quality of Pain: Dull and Aching Location: Mid right foot Current Severity: Mild Maximum Severity: Moderate Worsened by: Weightbearing and palpation during exam Relieved by: Nothing Associated Symptoms Associated Symptoms: Negative for Parasthesia, Weakness or Loss of Funtion Narrative Narrative: Patient is a 42-year-old woman who presents with atraumatic right foot pain. She states she felt a pop followed by pain. She denies history of osteoporosis. She states she has had multiple fractures in the foot and has seen Dr. Fady licea. She denies paresthesia, anesthesia weakness. 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 Chris Ennis MD) household members: none Smoking Status: Never smoker alcohol intake: never what type of physical activity do you participate in: other ROS ROS ED Constitutional Constitutional ED: Denies chills, fever(s), subjective, sweats or weight loss Musculoskeletal Musculoskeletal: Reports other Details: Documented HPI narrative ; Denies arthralgias, back pain, myalgias or neck pain Integumentary Denies Abrasions or rash Neurologic Neurologic: Reports other Details: And document in HPI ; Denies headache(s), paresthesias or weakness Hematologic/Lymphatic Hematologic/Lymphatic: Denies easy bleeding or easy bruising EXAM Physical Exam Const Vital Signs: 07/11/22 14:22 Temperature 98.1 F Temperature Source Temporal Pulse Rate 69 Respiratory Rate 18 Blood Pressure 124/76 H Blood Pressure Mean 92 Pulse Ox 99 Oxygen Delivery Method Room Air Positive well nourished and well developed General Appearance ED: well developed and NAD HEENT Reports moist mucous membranes normocephalic and atraumatic Eyes PERRL Eyes Narrative: Extract muscle intact. Sclera is anicteric. Neck full ROM Resp normal respiratory effort Cardio regular rate and regular rhythm Extremity Negative for normal to inspection Extremity Narrative: There is soft tissue swelling over the dorsal aspect of the right foot. There is pain no patient over the metatarsal tarsal bones. There is no pain ovation of the base of the fifth metatarsal. There is no pain ovation over the lateral medial malleolus. PT pulse palpable. Difficult to assess DP because of pain. Patient is able to wiggle all of her toes. There is no subungual hematoma noted in any toe. General Extremety ED: Yes weight-bearing difficulty; Negative for cyanosis or edema General Extremity: weight-bearing difficulty; Negative for cyanosis or edema Neuro oriented x3, CN's II-XII intact bilaterally and moves all extremities Sensorium / Orientation: alert Psych mental status grossly normal Skin no wounds Lesions: no lesions Rashes: no rashes MDM MDM MDM Narrative Medical decision making narrative: X-ray of the foot was obtained to evaluate for fracture versus soft tissue injury. Radiography X-Ray: - (Three-view x-ray of the right foot was obtained. There is no soft tissue swelling. There is no fracture. There is no subluxation or dislocation.) Discharge Plan Triage Chief Complaint: Lower Extremity Injury ED Provider: Chris Ennis Dx/Rx/DC Orders Clinical Impression: Acute pain of right foot Instructions: ED Pain, Acute, Uncertain Cause Prescriptions: No Action cholecalciferol (vitamin D3) 1,250 mcg (50,000 unit) capsule 1,250 mcg PO QWEEK Qty: 12 0RF Primary Care Provider: Care Physician,No Primary Referrals: Mathieu Jordan DPM [Med Staff - Active Staff] - 3-5 Days if not improving Care Physician,No Primary [Primary Care Provider] - Activity Restrictions/Additional Instructions: Apply ice 6-8 times a day Take either Advil, 4 tablets every 8 hours or Aleve, 2 tablets every 12 hours for the next 3 to 5 days. Disposition Disposition: Home, Self Care
== END 2022-07-11 15:32 | disposition home or self-care (01) ==
LOC: ED 15:24
PROVIDERS: Emergency Provider Emergency Medicine; Visit Provider Emergency Medicine
DX: M79.671 Pain in right foot (principal)
CPT/HCPCS: 73630; 99284

== ENCOUNTER → 2022-09-25 | Outpatient (CLI) | payer OTHER, SELFPAY ==
--- NOTE | 2022-09-25 11:30 | MRI_ITS ---
STUDY: MR Midfoot W/O Contrast 09/25/2022 7:42 PM right REASON FOR EXAM: Female, 42 years old. stress fracture pain in heel TECHNIQUE: Standardized fat and water weighted pulse sequences were obtained in all 3 orthogonal planes. COMPARISON: xr 10.8.22 FINDINGS: Normal visualized subtalar, talonavicular, calcaneocuboid, tarsal and tarsometatarsal articulations. Normal metatarsi. Normal metatarsophalangeal joint of the great toe. Normal tibial and fibular sesamoid bones. Normal interphalangeal joint of the great toe. Normal phalanges of the great toe. Normal second through fifth metatarsophalangeal joints. Normal interphalangeal joints and phalanges of the lesser toes. The soft tissue structures are unremarkable. MRI/Lower Ext/No Jt/w/o IMPRESSION: No acute findings on this unenhanced MRI of the forefoot. Electronically Signed: Jeffrey Prabhakar MD at 19:44 EST ,
== END | disposition home or self-care (01) ==
PROVIDERS: Referring Provider Podiatrist; Visit Provider Podiatrist
DX: M84.374A Stress fracture, right foot, initial encounter for fracture (principal)
CPT/HCPCS: 73718

== ENCOUNTER 2023-01-07 13:00 | Outpatient (RCR) | payer OTHER, SELFPAY ==
--- NOTE | 2022-12-23 10:54 | HP.PTEVAL_ITS ---
Patient's Visit Information MARK BAZZI is a 42 year old F referred to Physical Therapy by Dr. Mathieu Jordan DPM with a diagnosis of Deep peroneal neuritis. Date of Evaluation: 12/23/22 Physical Therapist: Jh Shannon DPT, OCS, CSCS - Visit Plan Frequency: 3x /Week Duration: 4 Weeks Plan: 3x/week for 4 weeks(recheck after two to consider dry needle/ionto(not covered by insurance)). Please do gastroc soleus rollout, foot STM focussing top of foot and metatarsal mobs, strength and proprioception ankle to HEP, stretch gastroc and soleus. May do US thermal to top r foot and TENS if painful at rest. EG to recheck in two weeks. - Subjective Lots of issues iwth R foot Broke it( not sure why) and put in cast over a year ago adn healed then broke it again and it healed. 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 Hurt more as she was on it. MRI approved adn nothing was broke. Has been off of it from October to 8 weeks later and been off of it alot. Did a day NWB which helped but that is hard for her. Had injection which she did not like and it did help in October. It showed it was her nerve. Pain currently bad as in October and mild to moderate 4/10 many days but after a busy day yesterday is a 6/10 today. It is comfortable at rest and better with elevation. Wrose with shoes on. Goes barefoot alot. 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 Needs a sitting job. Sleep is Ok for the most part. Hobbies include sewing and she can do that with L foot. basic aDLs getting done but need modified if she is in pain. - Pain top R foot Pain Intensity (Out of 10): 0 Pain Intensity Range: 0, 6 - Objective Walks avoiding R push off causing a limp. Trasnfers I. Walk I. AROM ankles DF -5 R adn -1 L, tightness in gastroc and soleus apparent. Inv/ev PF all WFL. Tender to touch on 4th met on R foot, not to squeezes and not to big toe movement or resistance. Strength big toe 4/5 flex and ext. Wiggle stoes well. Strength ankle DF 4 and inv/ev 4- B, PF hesitant on R with body weight but able and slight increased pain, L is 5/5. Sensation foot WNL to gross light touch. Pulses are 2+ pedal and Tarsal tunnel. Metatrasls are stiff B in whole foot. - Balance/Special Test Scores Lower Extremity Functional Score: 45 - Goals Goal 1:: Pain r foot 1/10 at worst and manageable Goal Time Frame: 2-4 Weeks Goal 2:: pt I in management of condition Goal Time Frame: 2-4 Weeks Goal 3:: Walk without antalgia or VC for gait deviations Goal Time Frame: 2-4 Weeks Goal 4:: LEFS 55 Goal Time Frame: 2-4 Weeks - Rehabilitation Potential Physical Therapy Diagnosis: R foot pain top of foot causing mobility deficits. Rehabilitation Potential: Fair - Anticipated Interventions Patient/Client Instruction: Educate patient on: Condition, Plan of Care For the Purpose of:: To decrease pain, To increase ROM, To improve nutrient delivery to tissue, To improve muscle performance and motor function, To increase tolerance to activity/condition/position Therapeutic Exercise to Include: Strength training, Balance training, Flexibilty training, Passive ROM, Active ROM For the Purpose of:: To decrease pain, To increase ROM, To improve nutrient delivery to tissue, To improve muscle performance and motor function, To increase tolerance to activity/condition/position, To improve ability of physical actions for home/community/work/leisure, To improve gait and locomotor functions Manual Therapy Techniques to Include: Mobilization, Passive ROM, Soft tissue mobilization For the Purpose of:: To decrease pain, To increase ROM TENS: Yes Ultrasound (thermal/non thermal): Yes - thermal For the Purpose of:: To decrease pain, To increase ROM, To improve nutrient delivery to tissue Thank you for the opportunity to evaluate your patient. For Medicare and Medicare HMO plans, please review the plan of care and approve it. It will need to be FAXED BACK to us at [phone] for Medicare purposes. For Medicare only, by signing this I certify the plan of care. Please let me know if there are questions or concerns regarding this plan of care. Physician Signature: Date:
--- NOTE | 2023-02-04 17:43 | HP.PT.NRP ---
MARK BAZZI was seen in my office for initial evaluation on 12/23/22. The following Plan of Care was established for this patient: Initial Frequency: 3x /Week Initial Duration: 4 Weeks Patient/Client Instruction: Educate patient on: Condition, Plan of Care For the Purpose of:: To decrease pain, To increase ROM, To improve nutrient delivery to tissue, To improve muscle performance and motor function, To increase tolerance to activity/condition/position Therapeutic Exercise to Include: Strength training, Balance training, Flexibilty training, Passive ROM, Active ROM For the Purpose of:: To decrease pain, To increase ROM, To improve nutrient delivery to tissue, To improve muscle performance and motor function, To increase tolerance to activity/condition/position, To improve ability of physical actions for home/community/work/leisure, To improve gait and locomotor functions Manual Therapy Techniques to Include: Mobilization, Passive ROM, Soft tissue mobilization For the Purpose of:: To decrease pain, To increase ROM TENS: Yes Ultrasound (thermal/non thermal): Yes - thermal For the Purpose of:: To decrease pain, To increase ROM, To improve nutrient delivery to tissue This patient was last seen in our office 01/07/23. Pertinent comments regarding their Physical therapy will appear below: Pt seen 6 visits of POC and was not improving. We decided to try Dry Needling but patient called to cancel those visits and stated to discharge her chart. At this point I will be discontinuing this patient from physical therapy. I would be happy to see this patient again in the future if found appropriate by the physician. Thank you! Jh Sahnnon, DPT, OCS, CSCS Balance/Gait/Functional tests - Balance/Special Test Scores Lower Extremity Functional Score: 45
== END 2023-01-07 19:00 | disposition home or self-care (01) ==
LOC: PT 13:00
PROVIDERS: Referring Provider Podiatrist; Visit Provider Podiatrist
DX: G57.31 Lesion of lateral popliteal nerve, right lower limb (principal)
CPT/HCPCS: 97110; 97140; 97161; 97530

== ENCOUNTER → 2023-07-20 | Outpatient (CLI) | payer OTHER, SELFPAY ==
--- NOTE | 2023-07-20 15:25 | RAD_ITS ---
INDICATION: Bilateral thigh pain. EXAMINATION/TECHNIQUE: X-RAY - XR Hips Bilateral with Pelvis when performed; 5 Views. COMPARISON: None. FINDINGS: PELVIC BONES: No displaced fracture, destructive or sclerotic lesions. Note that overlapping bowel shadows may however obscure fine detail. Sacroiliac joints are unremarkable. No widening of the pubic symphysis. HIPS: The articular structures are unremarkable. No displaced fracture. SOFT TISSUES: No soft tissue swelling or gas. RAD/Hips B/L min 2 views w/ Pelvis IMPRESSION: No evidence of displaced pelvic or hip fracture. Electronically Signed: Aidan Calderon MD at 16:02 EDT ,
[2023-07-20 17:35] LABS: Absolute Lymphocyte Count 2.78 X10^3/uL (0.83-4.51); Absolute Neutrophil Count 3.8 X10^3/uL (2.0-7.7); Basophil# 0.08 X10^3/uL; Eosinophil# 0.16 X10^3/uL; Eosinophils% 2.1 % (0-5); Hematocrit 41.3 % (37-47); Lymphocyte # 2.78 X10^3/ul (0.83-4.51); Lymphocyte % 36.4 % (19-41); Mean Corp Hgb Conc 31.5 g/dL (32-36); Mean Corpuscular Hgb 28.3 pg (27.0-32.0); Mean Platelet Vol. 9.6 fl (6.2-12.0); Monocyte# 0.84 X10^3/uL; NRBC Flagged by Analyzer 0 % (0-5); Neutrophil # 3.76 X10^3/uL (2.7-7.7); Neutrophil % 49.4 % (47-70); Platelet Count 400 K/mm3 (150-450); RBC Distribution Width CV 12.3 % (11.6-14.6); RBC Distribution Width SD 40.4 fl (35.1-43.9); Red Blood Count 4.59 M/mm3 (4.2-5.4); White Blood Count 7.6 K/mm3 (4.4-11.0)
[2023-07-20 17:55] LABS: Erythrocyte Sedimentation Rate 7 mm/hr (0-30)
[2023-07-20 18:03] LABS: Vitamin D,25 Hydroxy 22.7 ng/mL
[2023-07-20 18:11] LABS: AST(SGOT) 19 U/L (15-37); Alanine Aminotransfer ALT/SGPT 51 U/L (13-56); Albumin, Serum 3.7 g/dL (3.2-5.0); Alkaline Phosphatase 79 U/L (45-117); Bilirubin, Direct 0.12 mg/dL (0.00-0.30); CRP 3.83 mg/L (0.0-3.0); Globulin 3.6 g/dL (2.2-4.2); Protein, Total 7.3 g/dL (6.4-8.2)
[2023-07-22 13:08] LABS: ANTINUCLEAR ANTIBODIES DIRECT Negative (Negative)
== END | disposition home or self-care (01) ==
PROVIDERS: PCP Family Medicine; Referring Provider Family Medicine; Visit Provider Family Medicine
DX: M79.606 Pain in leg, unspecified (principal); B25.1 Cytomegaloviral hepatitis; E55.9 Vitamin D deficiency, unspecified
CPT/HCPCS: 36415; 73521; 80076; 82306; 85025; 85652; 86038; 86140

== ENCOUNTER 2023-09-29 17:30 | Outpatient (RCR) | payer OTHER, SELFPAY ==
--- NOTE | 2023-09-29 18:38 | HP.PTEVAL ---
Patient's Visit Information Visit Information Visit Information: MARK BAZZI is a 43 year old F referred to Physical Therapy by Dr. Ania Wright MD with a diagnosis of R hip pain. Date of Evaluation: 09/06/23 Physical Therapist: Jorgito Flowers DPT Visit Plan Frequency: 2x /Week Duration: 4 Weeks Plan: Focus on Ext-Bias Core and Hip Strength. Subjective Subjective: Pt. is here today for her initial evaluation with diagnosis of R hip pain. Pt. reports having increased pain for a few months now. No mech of injury, but did start a new job and is doing more standing. Also started square dancing recently as well. Pt. reports having increased pain with static standing, sitting and at the end of her work day. She does have some pain AMs as well. Pt. reports pain in R lateral/posterior hip that does extend down her leg to her foot at times. She does have some back pain as well, but more intermittent. Pt. denies N/T and no LE weakness. Pt. is hopeful to reduce her symptoms in order to get back to all work and recreational dancing without limitations. Pain R leg: Pain Intensity (Out of 10): 2 Pain Intensity Range: 0 and 8 Comment: lateral right hip- minimal Objective Objective: POSTURE: Slight forward flexed posture, but able to correct without issues. PALPATION: Pt. has tenderness at SI region on bilateral side. No pain with palpation of greater trochanter or piriformis muscle belly. NEURO: normal sensation and normal DTR of BLEs. Pt. is able to rise on heels and toes without issues. ROM: LUMBAR SPINE: flexion min/nil loss mild increase NW, ext nil loss decrease NB, SB nil loss NE bilat, rotation nil loss NE bilat. Pt. has normal HS and hip flexor length as well as IT band length. MMT: PT. has good strength throughout BLEs, increase in pain with L hip flexion, No myotomal weakness noted. GAIT: PT. has fairly normal gait pattern with slight antalgic pattern during R stance phase. Special Tests L/S Slump test left side: Negative L/S Slump test right side: Positive L/S Left Straight Leg Raise: Negative L/S Right Straight Leg Raise: Positive Lumbar Standing: Flexion - Mechanical Response: No effect Lumbar Standing: Flexion - Symptoms During Testing: No effect Lumbar Standing: Flexion - Symptoms After Testing: No effect Lumbar Standing: Extension - Mechanical Response: No effect Lumbar Standing: Extension - Symptoms During Testing: Decreases Lumbar Standing: Extension - Symptoms After Testing: No better Lumbar Standing: Right Side Glides - Mechanical Response: No effect Lumbar Standing: Right Side [place] - Symptoms During Testing: No effect Lumbar Standing: Right Side [place] - Symptoms After Testing: No effect Lumbar Standing: Left Side [place] - Mechanical Response: No effect Lumbar Standing: Left Side [place] - Symptoms During Testing: No effect Lumbar Standing: Left Side [place] - Symptoms After Testing: No effect Lumbar Lying: Flexion - Mechanical Response: No effect Lumbar Lying: Flexion - Symptoms During Testing: No effect Lumbar Lying: Flexion - Symptoms After Testing: No effect Lumbar Lying: Extension - Mechanical Response: No effect Lumbar Lying: Extension - Symptoms During Testing: Decreases Lumbar Lying: Extension - Symptoms After Testing: Better Balance/Special Test Scores Lower Extremity Functional Score: 35 Goals Goal 1:: LTG: Pt. to be I with HEP. Goal Time Frame: 4-6 Weeks Goal 2:: LTG: Pt. be able to complete all work activities without increase R hip/leg pain Goal Time Frame: 4-6 Weeks Goal 3:: STG: Pt. to be able to sit without increase in R leg pain for 1+ hour. Goal Time Frame: 2-4 Weeks Goal 4:: LTG: Pt. to have Rehabilitation Potential Physical Therapy Diagnosis: Pt. pena signs and symptoms consistent with R hip pain. After doing testing and her assessment she appears to pain radiating from her LB. Pt did have a positive effect with extension this date and she would benefit from further progression with this. Rehabilitation Potential: Good Anticipated Interventions Patient/Client Instruction: Educate patient on: Condition, Plan of Care, Risk Factors and Benefits of Fitness Program For the Purpose of:: To facilitate caregiver knowledge, To improve self management, To prevent re-injury, To improve ability to perform tasks related to life management and To improve tolerance to ADL's Text: Thank you for the opportunity to evaluate your patient. For Medicare and Medicare HMO plans, please review the plan of care and approve it. It will need to be FAXED BACK to us at [phone] for Medicare purposes. For Medicare only, by signing this I certify the plan of care. Please let me know if there are questions or concerns regarding this plan of care. Physician Signature: Date:
--- NOTE | 2023-09-29 18:53 | HP.PTDCSUM ---
Discharge Summary D/C summary: It has been my pleasure to treat MARK BAZZI referred by Dr. Ania Wright MD, with the diagnosis of R hip pain for a total of 5 visit(s). Discharge Date: 09/29/23 Please see the following information for a summary of their discharge status. Subjective Subjective: Pt. reports overall about the same. She has overall is having some decreased frequency, but is now having more pain at night. She reports increased pain down the back of her R leg and laterally. Nights seem to be the worst. Pain R leg: Pain Intensity (Out of 10): 2 Overall Improvement % Improvement: 15 Objective Objective/Function: Pt. had full ROM of her RLE without increase in her symptoms. She continues to have a + slump test and SLR test on R side. Negative on L side. ROM: Pt. has close to full ROM of lumbar spine this date, small pinching with extension. gait: fairly normal gait pattern noted. STAIRS: normal MMT: 5/5 throughout distal LEs. Pt. has fair- core strength. At this point in time. I still believe she has a discogenic pathology, but seems to be less irritable. The only way I could provoke her symptoms today was with SLR test and with slump testing on the R side. At this point in time, she wishes to return back to physician as she is not having much progress with PT. Goals Goal 1:: LTG: Pt. to be I with HEP. Goal Progress: Goal Met Goal 2:: LTG: Pt. be able to complete all work activities without increase R hip/leg pain Goal Progress: Progressing Goal 3:: STG: Pt. to be able to sit without increase in R leg pain for 1+ hour. Goal Progress: Progressing Goal 4:: LTG: Pt. to have full lumbar ROM without increase in symptoms. Goal 5:: LTG: pt. to sleep throughout the night without increase in symptoms. Goal Progress: Not Progressing Plan Plan: Pt. to be DC from PT back to physician at this point in time. D/C Information Discharge Comments: Pt. was treated with lumbar ROM, hip stretching and core stability exercises. At this point in time she had made minimal progress. She would like to return to physician to determine best course of action. Pt. will be DC from PT at this point in time. d/c sentence: If there are questions or concerns regarding this patient's physical therapy, please feel free to call me at [phone]. Thank you for the referral of this patient. Sincerely, Jorgito Flowers, DPT Balance/Gait/Functional tests Balance/Special Test Scores Lower Extremity Functional Score: 35 Improvement % Improvement: 15
== END 2023-09-29 19:00 | disposition home or self-care (01) ==
LOC: PT 17:30
PROVIDERS: PCP Family Medicine; Referring Provider Family Medicine; Visit Provider Family Medicine
DX: M25.551 Pain in right hip (principal)
CPT/HCPCS: 97110; 97161; 97164